=== PATIENT | male | born 1995 | race African-American/Black ===

== ENCOUNTER 2025-10-18 18:40 | Emergency (ER) | payer SELFPAY ==
[2025-10-18 18:45] VITALS: BP 200/103; PULSE 99; RESP 18; TEMP 37.4; O2SAT 99
[2025-10-18 19:43] VITALS: BP 161/84; PULSE 81; RESP 18; TEMP 36.9; O2SAT 98
--- NOTE | 2025-10-18 19:44 | ED_ITS ---
HPI - Ear Problem General Chief complaint: Ear Stated complaint: Ear Infection Time Seen by Provider: 10/18/25 19:41 History of Present Illness HPI Narrative: Patient is a 29-year-old male who presents to the ER with a 5 day history rales upper respiratory infection. The last 24 hours his left ear started causing him discomfort. Patient also endorses coughing and congestion. He denies any chest pain, back pain, or wheezing. Patient denies any medical history relevant to this ER visit. Related Data Allergies Allergy/AdvReac Type Severity Reaction Status Date / Time No Known Allergies Allergy Verified 10/18/25 19:46 Review of Systems Review of Systems: All systems reviewed & are unremarkable except as noted in HPI and below Exam Narrative: GENERAL: Well appearing, well-nourished, non-toxic, in no acute distress. HEAD: Normocephalic, atraumatic. Left ear canal red, + purulent drainage behind L eardrum, no external drainage noted NECK: Supple. No adenopathy, no masses. RESPIRATORY: Airway patent, respirations nonlabored. Clear to auscultation bilaterally, no rales, rhonchi, wheezing. CARDIOVASCULAR: Regular rate and rhythm without murmurs, rubs, or gallops. Peripheral pulses 2+ and equal bilaterally. ABDOMINAL: Soft, nontender, nondistended, no hepatosplenomegaly. Normoactive BS. MUSCULOSKELETAL: Moves all extremities. Strength/ROM intact without gross deformities. SKIN: Warm, dry, normal color. No rashes. NEURO: A&O X3. Speech clear. Cranial nerves II-XII intact. No ataxic movements. PSYCHIATRIC: Appropriate mood and affect. Normal interaction. Course Vital Signs Vital signs: Vital Signs Temperature 37.4 C 10/18/25 18:45 Pulse Rate 99 10/18/25 18:45 Respiratory Rate 18 10/18/25 18:45 Blood Pressure 200/103 H 10/18/25 18:45 Pulse Oximetry 99 10/18/25 18:45 Oxygen Delivery Room Air 10/18/25 18:45 Temperature 36.9 C 10/18/25 19:43 Pulse Rate 81 10/18/25 19:43 Respiratory Rate 18 10/18/25 19:43 Blood Pressure 161/84 H 10/18/25 19:43 Pulse Oximetry 98 10/18/25 19:43 Oxygen Delivery Room Air 10/18/25 18:45 Medical Decision Making MDM Narrative Medical decision making narrative: Patient is a 29-year-old male who presents to the ER with a 5 day history rales upper respiratory infection. The last 24 hours his left ear started causing him discomfort. Patient also endorses coughing and congestion. He denies any chest pain, back pain, or wheezing. Patient denies any medical history relevant to this ER visit. He denies any drainage from his ear today. Labs Ordered: None necessary Imaging Ordered: None necessary Medications Ordered: Prednisone 40 mg p.o., Toradol 60 mg IM, Augmentin p.o. Diagnosis: Left ear infection, upper respiratory infection, high blood pressure Patient Education/Shared MDM: Pt reports he has no history of high blood pressure. Results of examination shared with patient. He reports he does not currently have a primary care provider. Patient strongly advised to maintain hydration status upon discharge and establish care with a PCP as soon as possible. He will be discharged home with a prescription for Augmentin, Medrol Dose Pack, and Tessalon Pearles. Strict return precautions provided. Patient verbalized understanding and is in agreement with plan. Vital signs stable at time of discharge. All questions answered. Differential Diagnosis Differential Diagnosis: Upper respiratory infection, ear infection, bronchitis Vital Signs Vital Signs: Vital Signs Temperature 37.4 C 10/18/25 18:45 Pulse Rate 99 10/18/25 18:45 Respiratory Rate 18 10/18/25 18:45 Blood Pressure 200/103 H 10/18/25 18:45 Pulse Oximetry 99 10/18/25 18:45 Oxygen Delivery Room Air 10/18/25 18:45 Temperature 36.9 C 10/18/25 19:43 Pulse Rate 81 10/18/25 19:43 Respiratory Rate 18 10/18/25 19:43 Blood Pressure 161/84 H 10/18/25 19:43 Pulse Oximetry 98 10/18/25 19:43 Oxygen Delivery Room Air 10/18/25 18:45 Discharge Plan Discharge Clinical Impression: Otitis media, Upper respiratory infection, High blood pressure Patient Disposition: Home Condition: Stable Instructions: Antibiotic Form, Ear Infection (ED), Earache (ED) Additional Instructions: Please return to the ER with any worsening symptoms. Establish care with primary care provider as soon as possible. Take all medications as prescribed, including regularly scheduled medications. Complete your full dose of antibiotics. You may take ibuprofen as needed for pain control. Please take Tessalon Perles as needed to treat your cough. Patient Language: Nigerian Prescriptions: New amoxicillin-pot clavulanate 875-125 mg tablet 1 tablet PO Q12H Qty: 20 0RF methylprednisolone [Medrol (James)] 4 mg tablets,dose pack See Rx Instructions .ROUTE .COMPLEX Qty: 21 0RF Rx Instructions: for 6 days benzonatate 100 mg capsule 100 mg PO TID Qty: 30 0RF Follow-up/Referrals: PHYSICIAN NOT ON STAFF,NONSTAFF [Primary Care Provider] Pascual Chacon MD [Physician, Family Practice] Referral Note: primary care provider Stand Alone Forms: Work/School Release IP Time of Disposition: 19:57
[2025-10-18] MEDS: KETOROLAC (*BKC) 60 MG/2 ML VIAL IM (19:50)
== END 2025-10-18 20:08 | disposition home or self-care (01) ==
LOC: ANHED 20:05
PROVIDERS: Emergency Provider Registered Nurse
DX: J06.9 Acute upper respiratory infection, unspecified (principal); H66.92 Otitis media, unspecified, left ear; I10 Essential (primary) hypertension
CPT/HCPCS: 96372; 99283; A9270; J1885; J7512